=== PATIENT | female | born 1950 | race Hispanic/Latino ===

== ENCOUNTER 2023-12-09 08:35 | Emergency (ER) | payer MEDICARE ==
[~2023-12-09] VITALS: Ht 152.4 cm; Wt 49.9 kg
[2023-12-09 09:12] LABS: BASOPHILS # (AUTO) 0.1 (0.0-0.1); BASOPHILS % 0.7 % (0.0-1.0); EOSINOPHILS # (AUTO) 0.2 (0.0-0.4); EOSINOPHILS % 2.3 % (0.0-6.0); HEMOGLOBIN 11.7 g/dL (12.0-16.0); LYMPHOCYTES # (AUTO) 3.1 (1.0-3.2); LYMPHOCYTES % 41.3 % (18.0-39.1); MEAN CORPUSCULAR HEMOGLOBIN 32.1 pg (28-32); MEAN CORPUSCULAR HGB CONC 32.5 g/dL (31-35); MEAN CORPUSCULAR VOLUME 98.6 fL (81-99); MONOCYTES # (AUTO) 0.6 (0.2-0.8); MONOCYTES % 7.6 % (4.4-11.3); NEUTROPHILS # (AUTO) 3.6 (2.1-6.9); NEUTROPHILS % 47.8 % (38.7-80.0); PLATELET COUNT 240 x10e3/uL (140-360); RED BLOOD COUNT 3.65 x10e6/uL (3.6-5.1); RED CELL DISTRIBUTION WIDTH 11.9 % (11.7-14.4)
[2023-12-09] MEDS: SODIUM CHLORIDE 0.9% 500ML 500 ML IV STA (09:20)
[2023-12-09] MEDS: ONDANSETRON HCL INJ 2MG/ML 2ML 2 MG/ML VIAL IV STA (09:24)
[2023-12-09 09:33] LABS: ALBUMIN 4.1 g/dL (3.5-5.0); ALBUMIN/GLOBULIN RATIO 1.2 (0.8-2.0); BILIRUBIN,TOTAL 0.8 mg/dL (0.2-1.2); CALCIUM 10.2 mg/dL (8.4-10.2); CREATININE, SERUM 0.78 mg/dL (0.57-1.11); TOTAL PROTEIN 7.4 g/dL (6.5-8.1)
[2023-12-09] MEDS ORDERED: ONDANSETRON ODT4 MG PO (09:47)
[2023-12-09] MEDS ORDERED: OMEPRAZOLE20 M1 PO (09:47)
[2023-12-09 10:16] VITALS: PULSE 78; RESP 16; TEMP 98
[2023-12-09 10:27] VITALS: BP 139/66; PULSE 70; RESP 16; TEMP 98.5; O2SAT 100
== END 2023-12-09 10:29 | disposition home or self-care (01) ==
LOC: ER 08:59
DX: R11.2 Nausea with vomiting, unspecified (principal); K52.9 Noninfective gastroenteritis and colitis, unspecified; R10.9 Unspecified abdominal pain; I10 Essential (primary) hypertension; E11.9 Type 2 diabetes mellitus without complications; E78.5 Hyperlipidemia, unspecified; M19.09 Primary osteoarthritis, other specified site
CPT/HCPCS: 36415; 80053; 85025; 99282; J2405; J2470; J7040